=== PATIENT | female | born 1980 | race African-American/Black ===

== ENCOUNTER → 2016-08-13 | Outpatient (CLI) | payer OTHER ==
[~2016-08-13] MED LIST: LOSARTAN POTASS50 MG PO
== END | disposition home or self-care (01) ==
LOC: CBAR 13:35
DX: Z01.818 Encounter for other preprocedural examination (principal); E66.01 Morbid (severe) obesity due to excess calories
CPT/HCPCS: G0463

== ENCOUNTER → 2016-09-10 | Outpatient (CLI) | payer OTHER | END | disposition home or self-care (01) | LOC: CBAR 15:57 | DX: Z01.818 Encounter for other preprocedural examination (principal); E66.01 Morbid (severe) obesity due to excess calories | CPT/HCPCS: G0463 ==

== ENCOUNTER → 2016-10-04 | Outpatient (CLI) | payer OTHER ==
--- NOTE | ~2016-10-04 | EKG ---
PATIENT: CARTER POST UNIT #: [id number] Ventricular Rate: 63 BPM Atrial Rate: 63 BPM P-R Interval: 132 ms QRS Duration: 82 ms Q-T Interval: 432 ms QTC Calculation(Bezet): 442 ms P [place]: 78 degrees Calculated R [place]: 82 degrees Calculated T [place]: 63 degrees Diagnosis Line: Normal sinus rhythm Diagnosis Line: Low voltage QRS Diagnosis Line: Borderline ECG Diagnosis Line: No previous ECGs available Diagnosis Line: Confirmed by NABEEL PEDERSEN MD ([id number]) on Diagnosis Line: 10/04/2016 11:22:58 PM INTERPRETING MD: MARTY
--- NOTE | ~2016-10-04 | CR63 ---
[facility] A Service of [facility] RADIOLOGY TEXT RESULTS PATIENT: CARTER POST LOCATION: [facility] : 76 UNIT #: [id number] AGE: [address]: Harlan Segovia MD SEX: F ORDER DR: [id number] [facility] [address] [place], [place] [address] [id number] O MR#: [id number] Acc #: [id number] NAME: CARTER POST. : 1980 SEX: F STUDY DATE/TIME: 10/04/2016 8:07 UNIT: [facility] ROOM: STUDY DESCRIPTION: CR Chest 2 View Attending Physician: Harlan Segovia M.D. Referring Physician: Harlan Segovia M.D. Ordering Physician: Harlan Segovia M.D. Primary Care Physician: Barrera Dowd II, M.D. MEDICAL IMAGING REPORT This report is preliminary unless electronic signature is present EXAM Chest PA and lateral 10/04/2016 HISTORY Preop laparoscopic gastric banding, morbid obesity. Benign essentially hypertension. FINDINGS PA and lateral examination of the chest upright shows a good expansion of the parenchyma with a normal distribution of the pulmonary vascularity. There is no indication of congestion, effusion, infiltrate, tumor, or nodular density. The pleural reflections and diaphragmatic contours are normal. The cardiac silhouette and mediastinal anatomy is within normal limits. IMPRESSION Normal chest. Dictated by... Samy Maza M.D. THIS IS AN ELECTRONICALLY VERIFIED REPORT Samy Maza M.D. at 10/04/2016 5:11 PM KRT/charity TD: 10/04/2016 12:33 JOB #: [id number] MEDICAL IMAGING REPORT [facility] A Service [facility] RADIOLOGY TEXT RESULTS PATIENT: CARTER POST LOCATION: [facility] : 76 UNIT #: [id number] AGE: [address]: Harlan Segovia MD SEX: F ORDER DR: Page 1 of 1 COPY
--- NOTE | ~2016-10-04 | CR97 ---
[facility] A Service of [facility] & [facility] RADIOLOGY TEXT RESULTS PATIENT: CARTER POST LOCATION: [facility] : 78 UNIT #: [id number] AGE: [address]: Harlan Segovia MD SEX: F ORDER DR: [id number] [facility] [address] [place], [place] [address] [id number] O MR#: [id number] Acc #: [id number] NAME: CARTER POST. : 1980 SEX: F STUDY DATE/TIME: 10/04/2016 8:27 UNIT: [facility] ROOM: STUDY DESCRIPTION: CR Esophagram Attending Physician: Harlan Segovia M.D. Referring Physician: Harlan Segovia M.D. Ordering Physician: Harlan Segovia M.D. Primary Care Physician: Barrera Dowd II, M.D. MEDICAL IMAGING REPORT This report is preliminary unless electronic signature is present EXAM Barium esophagram. INDICATION Minus morbid obesity. Preop for Lap-Band surgery. Fluoro time is 0.4 minutes. 5 fluoroscopic images were submitted. FINDINGS Thoracic esophagus is normal in course and caliber. Motility is normal. No evidence of stricture or hiatal hernia. IMPRESSION Normal Dictated by... Damion Logan M.D. THIS IS AN ELECTRONICALLY VERIFIED REPORT Damion Logan M.D. at 10/04/2016 4:05 PM RUSS/mere TD: 10/04/2016 10:42 JOB #: [id number] MEDICAL IMAGING REPORT Page 1 of 1 COPY
[2016-10-04 09:12] LABS: HEMATOCRIT 39.6 % (35.0-45.0); HEMOGLOBIN 12.5 gm/dL (12.0-16.0); MEAN CORPUSCULAR HGB CONC 31.7 g/dL (30-36); MEAN PLATELET VOLUME 9.8 FL (6.5-11.5); RED BLOOD COUNT 4.83 X10e (3.90-5.30); RED CELL DISTRIBUTION WIDTH 14.7 % (11.0-15.5); WHITE BLOOD COUNT 5.6 X10e3 (4.0-10.5)
[2016-10-04 09:57] LABS: ALBUMIN SERUM 3.7 g/dL (3.5-5.0); BILIRUBIN,TOTAL 0.5 mg/dL (0.2-2.0); BUN/CREATININE RATIO 14.44; CALCIUM SERUM 9.3 mg/dL (8.4-10.2); CREATININE SERUM 0.9 mg/dL (0.6-1.4); GLOM FILT RATE Estimated 94.7 mL/min (>60); POTASSIUM 3.8 mmol/L (3.5-5.1); PROTEIN TOTAL SERUM 7.3 g/dL (6.0-8.3)
== END | disposition home or self-care (01) ==
LOC: CRAD 07:50
PROVIDERS: Surgery
DX: Z01.818 Encounter for other preprocedural examination (principal); E66.01 Morbid (severe) obesity due to excess calories
CPT/HCPCS: 36415; 71020; 74220; 80053; 80061; 84443; 85027; 93005

== ENCOUNTER → 2016-10-16 | Day surgery (SDC) | payer OTHER ==
--- NOTE | ~2016-10-16 | CR7 ---
[facility] A Service of [facility] & [facility] RADIOLOGY TEXT RESULTS PATIENT: CARTER POST LOCATION: [facility] : 76 UNIT #: [id number] AGE: [address]: Harlan Segovia MD SEX: F ORDER DR: [id number] [facility] [address] [place], [place] [address] [id number] O MR#: [id number] Acc #: [id number] NAME: CARTER POST. : 1980 SEX: F STUDY DATE/TIME: 10/16/2016 8:45 UNIT: [facility] ROOM: STUDY DESCRIPTION: CR Abdomen Single AP View Attending Physician: Harlan Segovia M.D. Ordering Physician: Harlan Segovia M.D. Primary Care Physician: Barrera Dowd II, M.D. MEDICAL IMAGING REPORT This report is preliminary unless electronic signature is present EXAM KUB 10/16/2016 INDICATION Status post gastric band placement today. FINDINGS Supine view of the abdomen was obtained. Suboptimal positioning is noted. Gastric band is present with a phi angle of about 76 degrees. The port is in the left lower abdomen. Visualized bowel gas pattern is normal. IMPRESSION Suboptimal positioning. Gastric band present with a phi angle of roughly 76 degrees. Dictated by... Rafael Arguelles Jr., M.D. THIS IS AN ELECTRONICALLY VERIFIED REPORT Rafael Arguelles Jr., M.D. at 10/16/2016 4:58 PM RUPESH/charity TD: 10/16/2016 10:33 JOB #: [id number] MEDICAL IMAGING REPORT Page 1 of 1 COPY
--- NOTE | ~2016-10-16 | OR ---
Unit #: [id number] #: [id number] Patient: CARTER POST [id number] [address] [address] [id number] O MR#: [id number] NAME: CARTER POST ROOM: Date of Procedure: 10/16/2016 Admission Date: 10/16/2016 Surgeon: Harlan Segovia M.D. : 1980 Attending Physician: Harlan Segovia M.D. Primary Care Physician: Barrera Dowd II, M.D. OPERATIVE REPORT PREOPERATIVE DIAGNOSIS Chronic morbid obesity, BMI 36. POSTOPERATIVE DIAGNOSES 1. Chronic morbid obesity, BMI 36. 2. Paraesophageal hiatal hernia. PROCEDURES PERFORMED 1. Laparoscopic adjustable gastric band. 2. Laparoscopic paraesophageal hiatal hernia repair. BUSINESS [employer]UTIONS ARCHITECT Jaime Jack M.D. ANESTHESIA General endotracheal anesthesia. ESTIMATED BLOOD LOSS Minimal. IV FLUIDS 800 crystalloid. COMPLICATIONS None. INDICATIONS FOR PROCEDURE The patient is a 35-year-old with chronic morbid obesity. DESCRIPTION OF PROCEDURE The patient was taken to the operating room and placed in supine position. General anesthesia was induced. The abdomen was prepped and draped. A 3-cm incision was then made left of the midline. A 10-mm Visiport was then placed intraabdominal under direct vision. The abdomen was insufflated to 15 mmHg with CO2. The patient was then placed in a steep reversed Trendelenburg. General inspection of the abdomen revealed what appeared to be a paraesophageal hernia. This was identified with a defect at the diaphragm using anterior palpation with the instrument. We then made a small incision in the subxiphoid region. A Leann liver retractor was then placed intraabdominal and used to retract the left lobe of the liver upward to further expose the paraesophageal hernia and GE junction. I then placed a 5-mm port in the right upper quadrant, a 10-mm Unit #: [id number] #: [id number] Patient: CARTER POST port in the left upper quadrant, and another 5-mm port in the left lower quadrant. The stomach was retracted medial and downward. Upon retracting the stomach, we took down the paraesophageal ligament, exposing the right and left radha at the paraesophageal hernia. Any hernia sac was reduced. We then repaired the paraesophageal hernia using interrupted #0 Ethibond sutures in a [id number] type fashion. This formed a snug repair to the anterior esophagus. We then retracted the stomach medially and further exposed the angle of His using Bovie electrocautery. The stomach was then retracted laterally. We then took down the hepatogastric ligament with Bovie electrocautery. This exposed the right radha. Using blunt dissection, I created a retrogastric tunnel from this point to the angle of His. The band was then placed intraabdominal through the 10-mm port site. This was then brought through the retrogastric tunnel in a pars flaccida technique. The band was then closed anteriorly to form a 20-mL to 25-mL anterior gastric pouch. The fundus was then secured to the anterior pouch to prevent movement around the stomach using two interrupted #0 Ethibond sutures. A third suture was then used as a gathering stitch from the lesser curve to the anterior stomach, gathering and imbricating the remaining fundus of the stomach. The tubing was then brought out through the midline 10-mm port site. All ports and the Leann liver retractor were removed under direct vision with no evidence of abdominal hemorrhage. A polypropylene mesh was then secured to the posterior face of the laparoscopic band port. This was secured using #0 Ethibond suture. This was then cut to shape. The port was then connected to the tubing and placed into a subcutaneous pocket just anterior to the rectus sheath. Its position was then confirmed. All tubing was then placed intraabdominal. The wounds were then closed with interrupted 4-0 Vicryl. The patient tolerated the procedure well and was sent to the recovery room in good condition. Dictated by... Inocente Gallagher/marcelle TD: 10/16/2016 11:41 JOB #: [id number] OPERATIVE REPORT Page 1 of 1 X Harlan Segovia MD PROCEDURE OPERATIVE NOTE
== END | disposition home or self-care (01) ==
LOC: CSUR 06:02
DX: E66.01 Morbid (severe) obesity due to excess calories (principal); K44.9 Diaphragmatic hernia without obstruction or gangrene; K21.9 Gastro-esophageal reflux disease without esophagitis; I10 Essential (primary) hypertension; E78.5 Hyperlipidemia, unspecified; G47.30 Sleep apnea, unspecified; Z68.36 Body mass index [BMI] 36.0-36.9, adult; Z88.0 Allergy status to penicillin; Z91.040 Latex allergy status; Z91.018 Allergy to other foods; Z79.899 Other long term (current) drug therapy
CPT/HCPCS: 74000; 84703; C1781; J0330; J1100; J1650; J1885; J2250; J2370; J2405; J2710; J3010; J3370